=== PATIENT | male | born 1940 | race Asian ===

== ENCOUNTER 2019-07-16 14:59 | Emergency (ER) | payer MEDICARE, BC ==
[~2019-07-16] VITALS: Ht 160 cm; Wt 65.8 kg
[2019-07-16 15:04] VITALS: BP 100/52
--- NOTE | 2019-07-16 15:04 | NUR ---
ED Nurse Note: Pt brought in by EMS due to weakness. Per EMS, pt was outside a store and suddenly felt weakness and has positive LOC. People took him inside the store and called 911. Pt is AAO x4, follows commands with no respiratory distress.
--- NOTE | 2019-07-16 15:06 | Emergency Room Report ---
History of Present Illness General Chief Complaint: Generalized Weakness Source: Patient, EMS Present Illness HPI 78-year-old male history of Parkinson's disease presents with presyncopal episode, patient was walking felt lightheaded, he states it was very hot outside , he felt like he was going to faint, vision narrowed he denies any chest pain or shortness of breath, he sat down felt a little better however he had to call EMS because he felt very lightheaded. Symptoms lasted minutes, severity was severe, aggravated with heat alleviated with rest. Allergies: Coded Allergies: No Known Allergies (Unverified , 07/16/19) Patient History Past Medical History: see triage record Reviewed Nursing Documentation: PMH: Agreed; PSxH: Agreed Nursing Documentation-PMH Past Medical History: No History, Except For Hx Diabetes: Yes Hx Neurological Problems: Yes - PARKINSONS Review of Systems All Other Systems: negative except mentioned in HPI Physical Exam Vital Signs Date Time Temp Pulse Resp B/P (MAP) Pulse Ox O2 Delivery O2 Flow Rate FiO2 07/16/19 14:54 97.5 80 20 100/64 (76) 100 Room Air Sp02 EP Interpretation: reviewed, normal General Appearance: well appearing, no apparent distress, alert Head: normocephalic, atraumatic Eyes: bilateral eye PERRL, bilateral eye EOMI ENT: uvula midline, moist mucus membranes Neck: supple, thyroid normal, supple/symm/no masses Respiratory: lungs clear, no respiratory distress, no retraction, no accessory muscle use Cardiovascular #1: normal peripheral pulses, regular rate, rhythm, no edema, no gallop, no murmur Gastrointestinal: non tender, soft, no guarding, no rebound Musculoskeletal: normal inspection Neurologic: alert, oriented x3 Psychiatric: mood/affect normal Skin: no rash, warm/dry Medical Decision Making Diagnostic Impression: Primary Impression: Pre-syncope Additional Impressions: Episode of generalized weakness Dehydration ER Course 78-year-old male presents with presyncopal-like symptoms, patient endorses that he did not drink enough water today, patient also states he does not want to be admitted to the hospital on the differential includes ACS, dehydration Patient without any chest pain No evidence of ACS, pulmonary embolism, pneumothorax, pneumonia. Historically not abrupt in onset, tearing or ripping, pulses symmetric, no evidence of aortic dissection. Fluid resuscitation was provided to the patient, patient felt better Patient was offered admission for observation patient states that he wants to go home aware of the risks and benefits joint decision-making was made with patient and his , patient states if he worsens he will return to the ED Laboratory Tests Test 07/16/19 15:30 White Blood Count 10.3 K/UL (4.8-10.8) Red Blood Count 4.03 M/UL (4.70-6.10) L Hemoglobin 13.2 G/DL (14.2-18.0) L Hematocrit 36.7 % (42.0-52.0) L Mean Corpuscular Volume 91 FL (80-99) Mean Corpuscular Hemoglobin 32.7 PG (27.0-31.0) H Mean Corpuscular Hemoglobin Concent 36.0 G/DL (32.0-36.0) Red Cell Distribution Width 10.8 % (11.6-14.8) L Platelet Count 178 K/UL (150-450) Mean Platelet Volume 6.0 FL (6.5-10.1) L Neutrophils (%) (Auto) % (45.0-75.0) Lymphocytes (%) (Auto) % (20.0-45.0) Monocytes (%) (Auto) % (1.0-10.0) Eosinophils (%) (Auto) % (0.0-3.0) Basophils (%) (Auto) % (0.0-2.0) Differential Total Cells Counted 100 Neutrophils % (Manual) 79 % (45-75) H Lymphocytes % (Manual) 10 % (20-45) L Monocytes % (Manual) 7 % (1-10) Eosinophils % (Manual) 1 % (0-3) Basophils % (Manual) 1 % (0-2) Band Neutrophils 2 % (0-8) Platelet Estimate Adequate Platelet Morphology Normal Red Blood Cell Morphology Normal Prothrombin Time 10.8 SEC (9.30-11.50) Prothrombin Time INR 1.0 (0.9-1.1) PTT 23 SEC (23-33) Sodium Level 146 MMOL/L (136-145) H Potassium Level 3.8 MMOL/L (3.5-5.1) Chloride Level 109 MMOL/L (98-107) H Carbon Dioxide Level 25 MMOL/L (21-32) Anion Gap 12 mmol/L (5-15) Blood Urea Nitrogen 16 mg/dL (7-18) Creatinine 1.0 MG/DL (0.55-1.30) Estimate Glomerular Filtration Rate mL/min (>60) Glucose Level 141 MG/DL (74-106) H Calcium Level 9.2 MG/DL (8.5-10.1) Total Bilirubin 0.9 MG/DL (0.2-1.0) Aspartate Amino Transferase (AST) 14 U/L (15-37) L Alanine Aminotransferase (ALT) 24 U/L (12-78) Alkaline Phosphatase 34 U/L (46-116) L Total Creatine Kinase 45 U/L (26-308) Creatine Kinase MB < 0.5 NG/ML (0.0-3.6) Creatine Kinase MB Relative Index 1.1 Troponin I 0.004 ng/mL (0.000-0.056) Total Protein 6.6 G/DL (6.4-8.2) Albumin 3.7 G/DL (3.4-5.0) Globulin 2.9 g/dL Albumin/Globulin Ratio 1.3 (1.0-2.7) Lipase 227 U/L (73-393) EKG Diagnostic Results EKG Time: 15:40 EP Interpretation: NSR, rate 77, QTc 430, no acute ST elevations Rate: normal Rhythm: NSR ST Segments: no acute changes Rhythm Strip Diag. Results Rhythm Strip Time: 15:56 EP Interpretation: yes Rate: 78 Rhythm: NSR, no PVC's, no ectopy Chest X-Ray Diagnostic Results Chest X-Ray Diagnostic Results : Chest X-Ray Ordered: Yes # of Views/Limited/Complete: 1 View Indication: Other - syncope EP Interpretation: Yes Interpretation: no consolidation, no effusion, no pneumothorax, no acute cardiopulmonary disease Impression: No acute disease Electronically Signed by: Migeul Singh MD CT/MRI/US Diagnostic Results CT/MRI/US Diagnostic Results : Impression Preliminary Findings Only See Final Report For Complete Findings CT HEAD Without Contrast: No intracranial hemorrhage, mass effect or CT evidence of acute infarct Ventricles are within limits and midline Chronic and involutional changes Old right jon lacunar infarct image 8 Radiologist: Hamzah Mckoy M.D. Study ready at 15:29 and initial results transmitted at 15:49 Last Vital Signs Date Time Temp Pulse Resp B/P (MAP) Pulse Ox O2 Delivery O2 Flow Rate FiO2 07/16/19 14:54 97.5 80 20 100/64 (76) 100 Room Air Disposition: HOME, SELF-CARE Condition: Stable Referrals: [facility] Patient Instructions: Dehydration, Adult, [id number], Near-Syncope, Easy-to- Read, Weakness Additional Instructions: The patient was provided with discharge instructions, notified to follow-up with a primary care doctor and or specialist in the next 24-48 hours, and to return to the ED if they have worsening of their symptoms. Please note that this report is being documented using [employer] technology. This can lead to erroneous entry secondary to incorrect interpretation by the dictating instrument. Miguel Singh MD Jul 16, 2019 15:06
--- NOTE | 2019-07-16 15:30 | NUR ---
ED Nurse Note: Pt unable to provide urine specimen at this time.
--- NOTE | 2019-07-16 15:50 | Diagnostic Imaging Report ---
Indications: Syncope Technique: Spiral acquisitions obtained through the brain. Angled axial and coronal 5 x 5 mm slices were reconstructed. Total dose length product 1393.19 mGycm. CTDI vol(s) 70.38 mGy. Dose reduction achieved using automated exposure control Comparison: None. Findings: There is age-related enlargement of the ventricles and extra axial CSF spaces. There is periventricular deep white matter low-attenuation, consistent with chronic microvascular ischemic change. Old lacunar infarct is seen in the right side of the jon. No acute intracranial hemorrhage or edema. No mass effect nor midline shift. Otherwise normal porter-white differentiation. Visualized orbits are unremarkable. There is minimal left maxillary sinus disease. The calvarium is intact. Impression: Chronic and age-related changes. 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 The CT scanner at [facility] is accredited by the [employer] and the scans are performed using protocols designed to limit radiation exposure to as low as reasonably achievable to attain images of sufficient resolution adequate for diagnostic evaluation.
[2019-07-16 16:04] LABS: HEMATOCRIT 36.7 % (42.0-52.0); HEMOGLOBIN 13.2 G/DL (14.2-18.0); MEAN CORPUSCULAR VOLUME 91 FL (80-99); PLATELET COUNT 178 K/UL (150-450); RED BLOOD COUNT 4.03 M/UL (4.70-6.10); RED CELL DISTRIBUTION WIDTH 10.8 % (11.6-14.8); WHITE BLOOD COUNT 10.3 K/UL (4.8-10.8)
[2019-07-16 16:09] LABS: ANION GAP 12 mmol/L (5-15); BLOOD UREA NITROGEN 16 mg/dL (7-18); CALCIUM 9.2 MG/DL (8.5-10.1); CARBON DIOXIDE 25 MMOL/L (21-32); CHLORIDE 109 MMOL/L (98-107); POTASSIUM 3.8 MMOL/L (3.5-5.1); SODIUM 146 MMOL/L (136-145)
[2019-07-16 16:22] LABS: ALANINE AMINOTRANSFERASE 24 U/L (12-78); ALBUMIN 3.7 G/DL (3.4-5.0); ALBUMIN/GLOBULIN RATIO 1.3 (1.0-2.7); ALKALINE PHOSPHATASE 34 U/L (46-116); ASPARTATE AMINO TRANSFERASE 14 U/L (15-37); BILIRUBIN,TOTAL 0.9 MG/DL (0.2-1.0); CKMB < 0.5 NG/ML (0.0-3.6); CREATINE KINASE 45 U/L (26-308)
[2019-07-16 17:10] VITALS: BP 101/52
--- NOTE | 2019-07-16 17:10 | NUR ---
ER DISCHARGE NOTE: Patient is cleared to be discharged per ERMD, pt is aox4, on room air, with stable vital signs. pt/ were given dc and prescription instructions, pt/ were able to verbalize understanding, pt id band and iv site removed without complications. pt is able to ambulate with steady gait. pt took all belongings and left with his .
--- NOTE | 2019-07-17 10:50 | Diagnostic Imaging Report ---
Indication: Chest pain Technique: One view of the chest Comparison: none Findings: Lungs and pleural spaces are clear. Heart size is upper limits normal. The aorta is tortuous and calcified Impression: No acute process
--- NOTE | 2019-07-17 11:31 | Cardiology Report ---
APPROVED REPORT EKG Measurement Heart [id number] Normal sinus rhythm Normal ECG
== END 2019-07-16 17:10 | disposition home or self-care (01) ==
LOC: EDBD 14:59 → EMR 15:20
DX: R55 Syncope and collapse (principal); R53.1 Weakness; E86.0 Dehydration; G20 Parkinson's disease; E11.9 Type 2 diabetes mellitus without complications; R07.9 Chest pain, unspecified
CPT/HCPCS: 36415; 70450; 71045; 80053; 82550; 82553; 83690; 84484; 85007; 85025; 85610; 85730; 93005; 96360; 99284